=== PATIENT | female | born 1985 | race Two or more races ===

== ENCOUNTER 2016-07-11 20:15 | Emergency (ER) | payer MEDICAID, OTHER ==
[~2016-07-11] VITALS: Ht 165.1 cm; Wt 77.1 kg
[2016-07-11] MEDS ORDERED: HYDROcodone-ACET 5/325MG TAB PO ONE (22:00)
[2016-07-12 01:40] VITALS: BP 117/75
== END 2016-07-12 02:04 | disposition home or self-care (01) ==
LOC: ER 20:29
DX: S16.1XXA Strain of muscle, fascia and tendon at neck level, initial encounter (principal); M54.9 Dorsalgia, unspecified; M62.838 Other muscle spasm; W19.XXXA Unspecified fall, initial encounter; Y93.89 Activity, other specified; Y99.8 Other external cause status; Y92.009 Unspecified place in unspecified non-institutional (private) residence as the place of occurrence of the external cause
CPT/HCPCS: 70450; 72125; 72131

== ENCOUNTER 2020-05-16 19:03 | Emergency (ER) | payer MEDICAID, OTHER ==
[~2020-05-16] VITALS: Ht 165.1 cm; Wt 68.0 kg
[2020-05-16] MEDS ORDERED: ONDANSETRON HCL 4 MG/2 ML VIAL IV ONE (20:30)
[2020-05-16] MEDS ORDERED: HYDROmorphone HCL 2 MG/ML VL IV ONE (20:30)
[2020-05-16] MEDS ORDERED: KETAMINE 50mg/ML 10ml Vial (500mg/10ml) IV ONE (20:45)
[2020-05-16] MEDS ORDERED: ONDANSETRON HCL 4 MG/2 ML VIAL ONE (21:41)
[2020-05-16] MEDS ORDERED: PROPOFOL 0 ML IV ONE (22:50)
[2020-05-16] MEDS ORDERED: PROPOFOL 10 MG/ML 20 ML IV ONE (23:00)
[2020-05-16] MEDS ORDERED: KETOROLAC TROMETH 30 MG/ML 1ML VIAL IV ONE (23:30)
[2020-05-17 00:56] VITALS: BP 96/60
== END 2020-05-17 02:50 | disposition home or self-care (01) ==
LOC: ER 19:03 → EDBD 19:03 → ER 05-17 02:50
DX: S53.124A Posterior dislocation of right ulnohumeral joint, initial encounter (principal); S52.041A Displaced fracture of coronoid process of right ulna, initial encounter for closed fracture; M25.531 Pain in right wrist; V43.52XA Car driver injured in collision with other type car in traffic accident, initial encounter; Y93.89 Activity, other specified; Y92.89 Other specified places as the place of occurrence of the external cause; Y99.8 Other external cause status
CPT/HCPCS: 71045; 73070; 73080; 73100; 73120; 96374; 96375; 99285; J1170; J1885; J2405; J2704